=== PATIENT | male | born 1990 | race Caucasian/White ===

== ENCOUNTER 2019-01-08 13:52 | Emergency (ER) | payer MEDICARE, MEDICAID ==
[~2019-01-08] VITALS: Ht 182.9 cm; Wt 68.9 kg
[~2019-01-08 13:52] MED LIST: LORA10TA72 PO; OMEP-110 PO
--- NOTE | 2019-01-08 14:10 | NUR ---
FIRST CONTACT WITH PT. TABATHA. Pt able to speak in full sentences, maintain own oral secretions, no respiratory distress observed. Pt's mom at bedside. 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 Gurrola is his GI doctor. All safety measures in place. Call light within reach.
[2019-01-08] MEDS ORDERED: [UNRECOGNIZED DRUG - REMARK] INJ (14:22)
[2019-01-08] MEDS ORDERED: LANS15TA6 PO (14:22)
--- NOTE | 2019-01-08 14:50 | NUR ---
PT TO TRAUMA 3 FOR PROCEDURAL SEDATION/ENDOSCOPY. REPORT FROM ADEN ROBIN. PT AWAKE/ALERT. AIRWAY PATENT, SPEECH CLEAR; PT MANAGING OWN SECRETIONS. BP/SPO2/ECG MONITORING IN PLACE. CODE CART/AMBU/SUCTION READY. CONSENT SIGNED BY PT AND IS AT BEDSIDE.
--- NOTE | 2019-01-08 14:55 | NUR ---
Pt transported by wheelchair to trauma room for endoscopy procedure.
[2019-01-08] MEDS ORDERED: SODIUM CHLORIDE FLUSH 10ML SYR IVF ONE (15:00)
[2019-01-08] MEDS ORDERED: PROPOFOL 10 MG/ML, 20ML ONE ×2 (15:04→15:18)
--- NOTE | 2019-01-08 15:11 | NUR ---
Provided bedside report to ADEN Garzon. All questions answered.
[2019-01-08] MEDS ORDERED: FENTANYL PF 100 MCG/2ML ONE (15:32)
--- NOTE | 2019-01-08 15:43 | NUR ---
LATE ENTRY FOR PROCEDURAL SEDATION. DR BAILEY AND DR PICKETT AT BEDSIDE FOR PROCEDURAL SEDATION/ENDO. 1510 TIMEOUT; PT MEDICATED BY ERP FOR SEDATION. 151 PROCEDURE START 1535 PROCEDURE END TIME W/ SUCCESSFUL REMOVAL OF FB FROM ESOPHAGUS. PT HYPOTENSIVE, IVF RUNNING OKAY PER ERP. AIRWAY PATENT. RR WNL; SPO2 >90% ON 2L BY NC. IMPROVEMENT IN BP NOTED W/ IVF. PT NOW AWAKE, TALKING, THOUGH SPEECH IS SLURRED. PT FOLLOWING COMMANDS.
--- NOTE | 2019-01-08 15:56 | NUR ---
PT REMAINS HYPOTENSIVE, SBP 80'S. ERP AWARE, VERBAL ORDER FOR SECOND LITER NS RECEIVED. IVF HUNG. PT DENIES DIZZINESS/NAUSEA; PT IS PWD/TALKATIVE. MOTHER AT BEDSIDE
[2019-01-08] MEDS ORDERED: PROPOFOL 10 MG/ML, 20ML IVPush ONE (16:00)
[2019-01-08 16:12] VITALS: BP 105/56
--- NOTE | 2019-01-08 16:16 | NUR ---
PT TAKING PO FLUIDS WO DIFFICULTY. SPO2 >90% ON RA. RR WNL. IMPROVMENT IN BP NOTED WITH IVF. ERP TO RECHECK
--- NOTE | 2019-01-08 16:41 | NUR ---
DC EDUCATION PROVIDED, PT DEMONSTRATES UNDERSTANDING. PT AMBULATED STEADILY TO WHEELCHAIR AT DOORWAY WO CO WEAKNESS/DIZZINESS. PT WHEELED TO DC WITH RN AND MOTHER. MOTHER TO TRANSPORT PT HOME.
== END 2019-01-08 16:42 | disposition home or self-care (01) ==
LOC: ED 16:21
DX: T18.128A Food in esophagus causing other injury, initial encounter (principal); X58.XXXA Exposure to other specified factors, initial encounter; Y93.89 Activity, other specified; Y92.89 Other specified places as the place of occurrence of the external cause; Y99.8 Other external cause status
CPT/HCPCS: 99152; 99153; 99285